=== PATIENT | male | born 1990 | race Caucasian/White ===

== ENCOUNTER 2023-09-15 07:36 | Emergency (ER) | payer OTHER ==
[~2023-09-15] VITALS: Ht 182.9 cm; Wt 97.5 kg
[2023-09-15 07:41] VITALS: BP 123/75; PULSE 108; RESP 20; TEMP 99; O2SAT 98
[2023-09-15] MEDS ORDERED: ALBUTEROL 0.083% 2.5 MG/3 ML NEBU INH ONE (07:45)
[2023-09-15] MEDS ORDERED: predniSONE 20 MG TAB PO ONE (07:45)
[2023-09-15 08:10] VITALS: O2SAT 98
[2023-09-15] MEDS ORDERED: IPRATROPIUM 0.02% 0.5 MG/2.5 ML NEBU INH ONE (08:15)
[2023-09-15] MEDS ORDERED: PRED20TA5 PO (08:49)
[2023-09-15] MEDS ORDERED: ALBU0.0912 INH (08:49)
== END 2023-09-15 09:04 | disposition home or self-care (01) ==
LOC: MED 07:36
DX: J45.901 Unspecified asthma with (acute) exacerbation (principal); Z79.899 Other long term (current) drug therapy
CPT/HCPCS: 94640; 99283; J7512; J7613; J7644